=== PATIENT | male | born 1945 | race Caucasian/White ===

== ENCOUNTER 2022-09-20 15:14 | Emergency (ER) | payer MEDICARE ==
[~2022-09-20] VITALS: Ht 177.8 cm; Wt 77.6 kg
[2022-09-20 15:17] VITALS: TEMP 98
[2022-09-20 16:03] LABS: HEMATOCRIT 45.3 % (42.0-52.0); HEMOGLOBIN 15.4 g/dl (13.5-17.5); MEAN CORPUSCULAR HEMOGLOBIN 33.1 pg (27.0-33.0); MEAN CORPUSCULAR VOLUME 97.4 fl (80.0-96.0); PLATELET COUNT, AUTOMATED 277 10^3/uL (150-450); RED BLOOD COUNT 4.65 10^6/uL (4.30-6.10); WHITE BLOOD COUNT 7.7 10^3/uL (4.0-10.0)
[2022-09-20 16:34] LABS: BLOOD UREA NITROGEN 28 MG/DL (9-23); CALCIUM LEVEL 9.3 MG/DL (8.3-10.6); CARBON DIOXIDE LEVEL 25 MMOL/L (20-31); CHLORIDE LEVEL 110 MMOL/L (98-107); CREATININE FOR GFR 1.22 MG/DL (0.70-1.30); GLOMERULAR FILTRATION RATE > 60.0 (>42); GLUCOSE, FASTING 125 MG/DL (74-106); POTASSIUM SERUM 4.2 MMOL/L (3.5-5.1); SODIUM LEVEL 140 MMOL/L (136-145)
[2022-09-20 20:36] LABS: MB/CK RELATIVE INDEX 1.49 (< OR =4)
[2022-09-20] MEDS ORDERED: ISOVUE-370 76% 100ML VIAL As Ordered ONE (21:12)
[2022-09-20] MEDS ORDERED: LABETALOL 100MG/20ML VIAL IV STA (23:23)
[2022-09-20 23:43] VITALS: BP 145/72
[2022-09-20] MEDS: hydrALAZINE 20MG/ML 1ML VIAL IV STA (23:43)
[2022-09-21] MEDS ORDERED: AMLO1TAB24 PO (00:57)
[2022-09-21 01:19] VITALS: BP 108/67; O2SAT 97
== END 2022-09-21 01:22 | disposition home or self-care (01) ==
LOC: M ED 15:14
DX: N40.0 Benign prostatic hyperplasia without lower urinary tract symptoms (principal); N21.0 Calculus in bladder; R03.0 Elevated blood-pressure reading, without diagnosis of hypertension; Z79.899 Other long term (current) drug therapy
CPT/HCPCS: 36415; 70450; 70544; 70547; 70551; 71260; 74177; 80048; 82550; 82553; 84484; 85027; 93005; 96374; 99285; J0360; Q9967